=== PATIENT | female | born 1990 | race Caucasian/White ===

== ENCOUNTER 2018-07-09 11:00 | Outpatient (CLI) | payer OTHER, SELFPAY ==
--- NOTE | 2018-07-09 10:51 | DI.RAD_ITS ---
SYMPTOMS/DIAGNOSIS: EVAL FOR LT KNEE PAIN LEFT KNEE: The joint spaces are well maintained. No joint effusion is seen. The bones are normally mineralized. IMPRESSION: Negative left knee.
== END 2018-07-09 11:20 ==
PROVIDERS: Visit Provider Student in an Organized Health Care Education/Training Program
DX: M25.562 Pain in left knee (principal)
CPT/HCPCS: 73564